=== PATIENT | male | born 1995 | race Caucasian/White ===

== ENCOUNTER 2022-04-02 13:30 | Emergency (ER) | payer OTHER, SELFPAY ==
[2022-04-02 14:27] VITALS: BP 131/83; PULSE 63; RESP 15; TEMP 36.1; O2SAT 98; BMI 27.1
[2022-04-02 15:21] LABS: COVID19 -Nasal RAPID Negative (Negative)
--- NOTE | 2022-04-02 15:29 | ED.URI ---
HPI - URI/Sore Throat <YIFAN Henderson - Last Filed: 04/02/22 15:32> General Chief Complaint: Upper Respiratory Symptoms Stated Complaint: Pain in throat- only left side Time Seen by Provider: 04/02/22 15:21 Source: patient Mode of arrival: Ambulatory History of Present Illness HPI Narrative: This is a 26-year-old male who presents to the emergency department with 2 weeks of a sore throat with history of strep throat in the past. Patient states that he has been told it is viral by multiple providers and has had negative strep test but no throat cultures. Patient's is and in her 3rd trimester, states that she has group B strep testing on Friday. She denies any symptoms at this time. Patient states that his sore throat is his only symptom and it has not improved at all. Related Data Previous Rx's Medication Instructions Recorded benzocaine 15 mg-menthol 2.6 mg 1 amrik mucous membrane Q2-4H PRN 04/02/22 lozenges (Cepacol Sore Throat sore throat #16 ea (benzocaine-menthol)) penicillin V potassium 500 mg 500 mg PO BID 10 days #20 tabs 04/02/22 tablet Allergies Allergy/AdvReac Type Severity Reaction Status Date / Time No Known Drug Allergies Allergy Verified 04/02/22 14:29 Review of Systems <YIFAN Henderson - Last Filed: 04/02/22 15:32> Review of Systems Narrative: Review of systems is negative for acute abnormalities unless otherwise noted in HPI Patient History <YIFAN Henderson - Last Filed: 04/02/22 15:32> Social History Smoking Status: Current some day smoker Smoking Status: Current some day smoker alcohol intake frequency: holidays/special occasions only Substance Use Type: does not use Exam <YIFAN Henderson - Last Filed: 04/02/22 15:32> Narrative Exam Narrative: Reviewed vitals signs and nursing notes. General: cooperative, comfortable, in no acute distress, well groomed HEENT: symmetrical facial expressions, moist mucous membranes, posterior pharynx with erythema and tonsillar adenopathy, mild amount of exudate, throat culture is pending, uvula is midline, without stridor Cardiovascular: regular rate and rhythm, no peripheral edema, warm extremities Skin: brisk capillary refill, without pallor or erythema Neuro: normal speech and cognition, A&O x3, ambulatory, clear speech Psych: mental status is grossly normal, congruent mood, normal affect, pleasant and cooperative Initial Vital Signs Initial Vital Signs: Vital Signs Temperature 97.0 F L 04/02/22 14:27 Pulse Rate 63 04/02/22 14:27 Respiratory Rate 15 04/02/22 14:27 Blood Pressure 131/83 04/02/22 14:27 Pulse Oximetry 98 04/02/22 14:27 Oxygen Delivery Method 04/02/22 14:27 <Merary Crenshaw DO - Last Filed: 04/03/22 20:33> Initial Vital Signs Initial Vital Signs: Vital Signs Temperature 97.0 F L 04/02/22 14:27 Pulse Rate 63 04/02/22 14:27 Respiratory Rate 15 04/02/22 14:27 Blood Pressure 131/83 04/02/22 14:27 Pulse Oximetry 98 04/02/22 14:27 Oxygen Delivery Method 04/02/22 14:27 Course <Myra Winston [facility] - Last Filed: 04/02/22 15:32> Orders Ordered: Discontinued Medications Dexamethasone (Dexamethasone 10 Mg/Ml Vial) 10 mg PO NOW ONE Stop: 04/02/22 15:25 Last Admin: 04/02/22 15:49 Dose: 10 mg Documented By: HEATHER Ketorolac Tromethamine (Ketorolac 10 Mg Tablet) 10 mg PO NOW ONE Stop: 04/02/22 15:25 Last Admin: 04/02/22 15:49 Dose: 10 mg Documented By: AMU Penicillin V Potassium (Penicillin Vk 250 Mg Tablet) 500 mg PO NOW ONE Stop: 04/02/22 15:25 Last Admin: 04/02/22 15:48 Dose: 500 mg Documented By: SHERRIEU Vital Signs Vital signs: Vital Signs - 8 hr 04/02/22 14:27 Temperature 97.0 F L Pulse Rate 63 Respiratory Rate 15 Blood Pressure 131/83 Pulse Oximetry 98 Oxygen Delivery Method Room Air <Merary Crenshaw DO - Last Filed: 04/03/22 20:33> Orders Ordered: Discontinued Medications Dexamethasone (Dexamethasone 10 Mg/Ml Vial) 10 mg PO NOW ONE Stop: 04/02/22 15:25 Last Admin: 04/02/22 15:49 Dose: 10 mg Documented By: AMU Ketorolac Tromethamine (Ketorolac 10 Mg Tablet) 10 mg PO NOW ONE Stop: 04/02/22 15:25 Last Admin: 04/02/22 15:49 Dose: 10 mg Documented By: AMU Penicillin V Potassium (Penicillin Vk 250 Mg Tablet) 500 mg PO NOW ONE Stop: 04/02/22 15:25 Last Admin: 04/02/22 15:48 Dose: 500 mg Documented By: AMU Vital Signs Vital signs: Vital Signs - 8 hr 04/02/22 14:27 Temperature 97.0 F L Pulse Rate 63 Respiratory Rate 15 Blood Pressure 131/83 Pulse Oximetry 98 Oxygen Delivery Method Room Air MDM - URI/Sore Throat <YIFAN Henderson - Last Filed: 04/02/22 15:32> Lab Data Labs: Lab Results 04/02/22 Range/Units 14:33 SARS-CoV-2 (PCR) Negative (Negative) Point of Care Testing Rapid Strep A Negative MDM Narrative Medical decision making narrative: This is a 26-year-old male presents to the emergency department with 2 weeks of pharyngitis with negative rapid strep test in the past. Today his rapid strep was negative, throat culture is pending, COVID PCR is also negative. Patient has tonsillar adenopathy with exudate, he was given penicillin VK for presumed strep pharyngitis, and he has a at home. She will be tested for group B strep in 3 days. #66: Appropriate Testing for Patients with Pharyngitis [x] The patient has acute pharyngitis/tonsillitis. The patient was prescribed antibiotics today and a strep test or culture was performed. [SATISFIES MIPS PERFORMANCE] [] The patient has acute pharyngitis/tonsillitis and was prescribed antibiotics today. A strep test or culture was not performed because the patient meets one of the following: [MIPS PERFORMANCE EXCEPTION/EXCLUSION] [] Patient received a competing diagnosis. The patient?s competing diagnosis is [] (e.g. acute otitis media, chronic sinusitis, cellulitis, etc.) [] Patient is currently on antibiotics or has been in the last 30 days. [] Patient had a competing comorbid condition within the last 12 months. The patient?s comorbid condition is [] (e.g., tuberculosis, neutropenia, cystic fibrosis, chronic bronchitis, pulmonary edema, respiratory failure, rheumatoid lung disease) [] The patient has acute pharyngitis/tonsillitis. The patient was prescribed antibiotics today and a strep test or culture was not performed. [DOES NOT SATISFY MIPS PERFORMANCE] <Merary Flower, DO - Last Filed: 04/03/22 20:33> Lab Data Labs: Lab Results 04/02/22 Range/Units 14:33 SARS-CoV-2 (PCR) Negative (Negative) Point of Care Testing Rapid Strep A Negative Discharge Plan Departure Patient Disposition: Home Clinical Impression: Strep pharyngitis Instructions: Strep Throat, Throat Culture, DI for Group B Streptococcal Infection in Activity Restrictions/Additional Instructions: *You have been diagnosed with strep throat, this is likely bacterial since it has been ongoing for 2 weeks. Please take these antibiotics twice a day for the next 10 days. Please take ibuprofen 800 mg every 8 hours for pain with food and water. Use throat lozenges for comfort, follow up with [employer] if needed to go back to work, you should not be contagious after 24 hours on antibiotics but avoid your for a while until your starting to feel better. *What to do: *Please continue to take your regular medications as directed. [x ] New medication prescriptions sent to your pharmacy: [[facility]] [ ] New medication written as a paper prescription [ ] No new medications given *Please follow up with your primary care provider in 2-3 days, call for an appointment. Let them know you were seen in the Emergency Department and that we asked that you be seen for follow-up. We will electronically transmit a record of today's note if your PCP is in our system *If you do not have a primary care provider please contact [phone] to establish care with one of the [facility] primary care providers. *Return to Emergency Department if you should have any new, worsening, or concerning symptoms, such as [fever greater than 101F, chills, worsening pain, persistent vomiting or other bothersome symptoms]. Prescriptions: New penicillin V potassium 500 mg tablet 500 mg PO BID 10 Days Qty: 20 0RF Cepacol Sore Throat (los-men) 15-2.6 mg lozenge 1 amrik mucous membrane Q2-4H PRN (Reason: sore throat) Qty: 16 0RF Referrals: Provider,Jovanny KELLEY [Primary Care Provider] - Stand Alone Forms: Work Release Note Visit Report Forms: Patient Portal/API <Merary Crenshaw DO - Last Filed: 04/03/22 20:33> Cosign ED Attending Yolandaature Attestation: I was immediately available in the department for consultation. Documentation has been reviewed. I agree with assessment and plan.
[2022-04-02] MEDS: PENICILLIN VK 250 MG TABLET 500 MG PO (15:48)
[2022-04-02] MEDS: DEXAMETHASONE 10 MG/ML VIAL PO (15:49)
[2022-04-02] MEDS: KETOROLAC 10 MG TABLET PO (15:49)
== END 2022-04-02 15:59 | disposition home or self-care (01) ==
PROVIDERS: Emergency Medicine; Emergency Provider Nurse Practitioner Critical Care Medicine
DX: J02.0 Streptococcal pharyngitis (principal); Z20.822 Contact with and (suspected) exposure to COVID-19
CPT/HCPCS: 87635; 87880; 99283; C9803; J1100